=== PATIENT | female | born 1980 | race Caucasian/White ===

== ENCOUNTER 2018-08-12 16:01 | Emergency (ER) | payer OTHER ==
[~2018-08-12] VITALS: Ht 157.5 cm; Wt 70.8 kg
[2018-08-12 16:06] VITALS: BP 129/69
--- NOTE | 2018-08-12 16:39 | NUR ---
PATIENT AMBULATED TO BED 12
--- NOTE | 2018-08-12 16:52 | NUR ---
38 Y FEMALE BIB SELF C/O HEADACHE X 3 DAYS, PAIN /. DENIES N/V/D. DENIES BLURRY VISION. VSS AT THIS TIME. PT AA0X4. PT BRAZILIAN SPEAKING ONLY. PAIN 10/23. BED IS DOWN, LOCKED, BED RAIL X 1, ERMD TO SEE PT.
--- NOTE | 2018-08-12 16:57 | NUR ---
PTS URINE WALKED DIRECTLY TO LAB
--- NOTE | 2018-08-12 17:03 | NUR ---
DR CHURCHILL AT BEDSIDE
[2018-08-12] MEDS ORDERED: METOCLOPRAMIDE 10 MG/2 ML INJ VIAL IM ONE (17:10)
[2018-08-12] MEDS ORDERED: KETOROLAC 60 MG/2 ML VIAL IM ONE (17:10)
[2018-08-12 17:20] LABS: BARBITURATE, URINE NEG. ng/ml (NEG <=200); BENZODIAZEPINE, URINE NEG. ng/mL (NEG <=200); CANNABINOID, URINE NEG. ng/mL (NEG <=50); COCAINE, URINE NEG. ng/mL (NEG <=300); OPIATE, URINE NEG. ng/mL (NEG <=2000); PHENCYCLIDINE SCREEN,URINE NEG. ng/mL (NEG <=25)
--- NOTE | 2018-08-12 18:07 | NUR ---
VSS AT THIS TIME. PT AA0X4. LAYING IN BED WITH LIGHTS DIMMED.
[2018-08-12 18:26] VITALS: BP 111/49
--- NOTE | 2018-08-12 18:26 | NUR ---
Patient discharged with v/s stable. Written and verbal after care instructions given and explained. Patient alert, oriented and verbalized understanding of instructions. Ambulatory with steady gait. All questions addressed prior to discharge. ID band removed. Patient advised to follow up with PMD. Rx of FIORICET given. Patient educated on indication of medication including possible reaction and side effects. Opportunity to ask questions provided and answered. DAVIS, SOLDERING MACHINE OPERATOR AUT[employer], TRANSLATED DISCHARGE INSTRUCTIONS TO [facility].
== END 2018-08-12 18:26 | disposition home or self-care (01) ==
LOC: MED 16:01
DX: R51 Headache (principal); R42 Dizziness and giddiness
CPT/HCPCS: 80305; 81025; 96372; 99283; J1885; J2765

== ENCOUNTER 2023-07-04 17:56 | Emergency (ER) | payer OTHER ==
[~2023-07-04] VITALS: Ht 154.9 cm; Wt 68.9 kg
[2023-07-04 18:29] VITALS: BP 90/50; PULSE 60; RESP 19; TEMP 98.7; O2SAT 100
[2023-07-04] MEDS ORDERED: NAPR-337 PO (20:07)
[2023-07-04 20:26] VITALS: BP 98/50; PULSE 62; RESP 18; TEMP 98; O2SAT 100
[2023-07-04] MEDS: KETOROLAC 30 MG/ML VIAL IM ONE (20:26)
== END 2023-07-04 20:26 | disposition home or self-care (01) ==
LOC: MED 17:56
DX: S46.812A Strain of other muscles, fascia and tendons at shoulder and upper arm level, left arm, initial encounter (principal); Z79.899 Other long term (current) drug therapy; X58.XXXA Exposure to other specified factors, initial encounter; Y93.89 Activity, other specified; Y92.89 Other specified places as the place of occurrence of the external cause; Y99.8 Other external cause status
CPT/HCPCS: 73030; 96372; 99283; J1885

== ENCOUNTER 2023-11-23 19:57 | Emergency (ER) | payer OTHER ==
[~2023-11-23] VITALS: Ht 160 cm; Wt 73.5 kg
[~2023-11-23 19:57] MED LIST: NAPR-337 PO
[2023-11-23 20:10] VITALS: BP 107/60; PULSE 58; RESP 18; TEMP 98.2; O2SAT 100
[2023-11-23 21:14] LABS: BASOPHILS # (AUTO) 0.1 K/uL (0.00-0.22); BASOPHILS % (AUTO) 1.7 % (0.0-2.0); EOSINOPHILS # (AUTO) 0.1 K/uL (0-0.4); EOSINOPHILS % (AUTO) 2.6 % (0.0-4.0); HEMATOCRIT 34.2 % (36-48); HEMOGLOBIN 11.3 g/dL (12.0-16.0); LYMPHOCYTES # (AUTO) 1.4 K/uL (2.5-16.5); LYMPHOCYTES % (AUTO) 31.4 % (20.5-51.1); MEAN CORPUSCULAR HEMOGLOBIN 29 pg (27-31); MEAN CORPUSCULAR HGB CONC 33 g/dL (33-37); MEAN CORPUSCULAR VOLUME 86.4 fL (80-94); MONOCYTES # (AUTO) 0.5 K/uL (0.8-1.0); NEUTROPHILS # (AUTO) 2.5 K/uL (1.8-7.7); NEUTROPHILS % (AUTO) 54.3 % (42.2-75.2); PLATELET COUNT (AUTO) 257 K/uL (140-450); RED BLOOD CELL COUNT(AUTO) 3.96 MIL/uL (4.20-5.40); RED CELL DISTRIBUTION WIDTH 14.6 % (11.6-13.7); WHITE BLOOD COUNT (AUTO) 4.6 K/uL (4.8-10.8)
[2023-11-23 21:31] LABS: ALANINE AMINOTRANSFERASE 18 U/L (12-78); ALBUMIN 2.9 g/dL (3.4-5.0); ALKALINE PHOSPHATASE 91 U/L (50-136); ANION GAP 7.9 (8-16); ASPARTATE AMINOTRANSFERASE 13 U/L (15-37); CARBON DIOXIDE 27.8 mmol/L (21-32); CHLORIDE 105 mmol/L (98-107); CREATININE 0.7 mg/dL (0.6-1.3); GFR ARICAN-AMERICAN 119 mL/min (>90); GFR NON ARICAN-AMERICAN 98 mL/min (>90); GLUCOSE 112 mg/dL (74-106); LIPASE 41 U/L (16-77); POTASSIUM 3.7 mmol/L (3.5-5.1); SODIUM SERUM 137 mmol/L (136-145); TOTAL BILIRUBIN 0.3 mg/dL (0.0-1.0); TOTAL PROTEIN, SERUM 6.2 g/dL (6.4-8.2); UREA NITROGEN, BLOOD 9 mg/dL (7-18)
[2023-11-23] MEDS: IBUPROFEN 600 MG TAB PO ONE (22:13)
[2023-11-23 22:40] VITALS: BP 101/58; PULSE 64; RESP 17; TEMP 98.2; O2SAT 100
== END 2023-11-23 22:40 | disposition home or self-care (01) ==
LOC: MED 19:57
DX: R07.89 Other chest pain (principal); Z90.49 Acquired absence of other specified parts of digestive tract; Z79.899 Other long term (current) drug therapy
CPT/HCPCS: 36415; 71045; 80053; 83690; 84484; 85025; 93005; 99285